=== PATIENT | female | born 1950 | race Caucasian/White ===

== ENCOUNTER → 2020-06-05 | Outpatient (CLI) | payer OTHER ==
[~2020-06-05] MED LIST: ACCU-CHEK1 EACH MC; AMLODIPINE BESYL5 MG PO; ASPIRIN EC81 MG PO; ATENOLOL100 MG PO; ATORVASTATIN CA40 MG PO; BACLOFEN10 MG PO; BACLOFEN20 MG PO; CALCIUM500 M1 PO; CYANOCOBAL1000 MCG/1 IM; DEX4 GLUCOSE4 GM PO; DIFLUCAN150 MG PO; DOXYCYCLINE MO100 MG PO; FERROUS SULFAT324 MG PO; FERROUS SULFAT325 MG PO; FUROSEMIDE20 MG PO; GEMFIBROZIL600 MG PO; GLIPIZIDE-METF1 EAC2 PO; HUMALOG 10100 UNITS/ SC; HYDROCODONE-AC1 EAC1 PO; KENALOG CREAM 015 GM TOP; LANTUS INS100 UTS/M1 SC; LASIX20 MG PO; LIORESAL TAB 1010 MG PO; LISINOPRIL40 MG PO; LISINOPRIL5 MG PO; LOPID600 MG PO; LORTAB 7.5-3251 EACH PO; MAG-OX 400 TAB400 MG PO; MAGNESIUM500 MG PO; NEURONTIN800 MG PO; NITRO-DUR1 EAC3 TOP; NITROSTAT0.4 MG SL; NORVASC 5 MG TAB5 MG PO; NYSTATIN CREAM TOP; PANTOPRAZOLE SO40 MG PO; PROTONIX 40 MG40 M1 PO; PROTONIX40 MG PO; TRAZODONE HCL100 MG PO; TYLENOL WITH C1 EACH PO; ULTRAM50 MG PO; ZESTRIL 40 MG T40 MG PO; ZESTRIL40 MG PO
[2020-06-05 09:33] LABS: HEMOGLOBIN 12.4 gm/dl (12.3-15.3); RED BLOOD COUNT 4.24 M/UL (4.00-5.10); WHITE BLOOD COUNT 8.5 K/UL (4.5-11.0)
== END ==
LOC: CT 06:46
PROVIDERS: Radiology Diagnostic Radiology
DX: R91.1 Solitary pulmonary nodule (principal); J98.4 Other disorders of lung
CPT/HCPCS: 36415; 77012; 82962; 85027; 85610

== ENCOUNTER → 2020-08-01 | Outpatient (CLI) | payer OTHER | LOC: WCC 08:00 | PROC: 0JBR0ZZ Excision of Left Foot Subcutaneous Tissue and Fascia, Open Approach (ICD-10-PCS; principal; 2020-08-01) | DX: E11.621 Type 2 diabetes mellitus with foot ulcer (principal); L97.522 Non-pressure chronic ulcer of other part of left foot with fat layer exposed; E11.52 Type 2 diabetes mellitus with diabetic peripheral angiopathy with gangrene; I96 Gangrene, not elsewhere classified; E11.40 Type 2 diabetes mellitus with diabetic neuropathy, unspecified; S80.822A Blister (nonthermal), left lower leg, initial encounter; S80.821A Blister (nonthermal), right lower leg, initial encounter; I10 Essential (primary) hypertension; D64.9 Anemia, unspecified; E11.36 Type 2 diabetes mellitus with diabetic cataract; H26.9 Unspecified cataract; E66.01 Morbid (severe) obesity due to excess calories; Z68.38 Body mass index [BMI] 38.0-38.9, adult; Z88.8 Allergy status to other drugs, medicaments and biological substances; Z79.891 Long term (current) use of opiate analgesic; Z79.899 Other long term (current) drug therapy; X58.XXXA Exposure to other specified factors, initial encounter | CPT/HCPCS: G0463 ==

== ENCOUNTER → 2020-08-08 | Outpatient (CLI) | payer OTHER | LOC: WCC 08:30 | DX: E11.621 Type 2 diabetes mellitus with foot ulcer (principal); L97.521 Non-pressure chronic ulcer of other part of left foot limited to breakdown of skin; E11.40 Type 2 diabetes mellitus with diabetic neuropathy, unspecified; S80.821A Blister (nonthermal), right lower leg, initial encounter; S80.822A Blister (nonthermal), left lower leg, initial encounter; R60.0 Localized edema; D64.9 Anemia, unspecified; I10 Essential (primary) hypertension; E66.01 Morbid (severe) obesity due to excess calories; Z68.38 Body mass index [BMI] 38.0-38.9, adult; Z88.8 Allergy status to other drugs, medicaments and biological substances; Z79.2 Long term (current) use of antibiotics; Z79.84 Long term (current) use of oral hypoglycemic drugs; Z79.899 Other long term (current) drug therapy; X58.XXXA Exposure to other specified factors, initial encounter ==

== ENCOUNTER → 2020-08-15 | Outpatient (CLI) | payer OTHER | LOC: KOH-I 08-09 10:30 | DX: E11.621 Type 2 diabetes mellitus with foot ulcer (principal); L97.529 Non-pressure chronic ulcer of other part of left foot with unspecified severity; E11.51 Type 2 diabetes mellitus with diabetic peripheral angiopathy without gangrene; I70.201 Unspecified atherosclerosis of native arteries of extremities, right leg; E11.40 Type 2 diabetes mellitus with diabetic neuropathy, unspecified; I10 Essential (primary) hypertension; R60.0 Localized edema; E66.01 Morbid (severe) obesity due to excess calories; S80.821A Blister (nonthermal), right lower leg, initial encounter; S80.822A Blister (nonthermal), left lower leg, initial encounter; D64.9 Anemia, unspecified | CPT/HCPCS: 93925 ==

== ENCOUNTER → 2020-08-15 | Outpatient (CLI) | payer OTHER | LOC: WCC 08:30 | DX: E11.621 Type 2 diabetes mellitus with foot ulcer (principal); L97.525 Non-pressure chronic ulcer of other part of left foot with muscle involvement without evidence of necrosis; E11.40 Type 2 diabetes mellitus with diabetic neuropathy, unspecified; D64.9 Anemia, unspecified; I10 Essential (primary) hypertension; R60.0 Localized edema; E66.01 Morbid (severe) obesity due to excess calories; S80.821A Blister (nonthermal), right lower leg, initial encounter; S80.822A Blister (nonthermal), left lower leg, initial encounter; Z68.38 Body mass index [BMI] 38.0-38.9, adult; Z88.8 Allergy status to other drugs, medicaments and biological substances; Z79.2 Long term (current) use of antibiotics; Z79.84 Long term (current) use of oral hypoglycemic drugs; Z79.899 Other long term (current) drug therapy; X58.XXXA Exposure to other specified factors, initial encounter | CPT/HCPCS: 93925 ==

== ENCOUNTER → 2020-08-22 | Outpatient (CLI) | payer OTHER | LOC: WCC 08:34 | DX: E11.621 Type 2 diabetes mellitus with foot ulcer (principal); L97.522 Non-pressure chronic ulcer of other part of left foot with fat layer exposed; E11.40 Type 2 diabetes mellitus with diabetic neuropathy, unspecified; I10 Essential (primary) hypertension; E66.01 Morbid (severe) obesity due to excess calories; D64.9 Anemia, unspecified; R60.0 Localized edema; S80.821D Blister (nonthermal), right lower leg, subsequent encounter; S80.822D Blister (nonthermal), left lower leg, subsequent encounter; Z68.38 Body mass index [BMI] 38.0-38.9, adult; Z88.8 Allergy status to other drugs, medicaments and biological substances; Z79.84 Long term (current) use of oral hypoglycemic drugs; Z79.2 Long term (current) use of antibiotics; Z79.899 Other long term (current) drug therapy; X58.XXXD Exposure to other specified factors, subsequent encounter ==

== ENCOUNTER → 2020-08-29 | Outpatient (CLI) | payer OTHER | LOC: WCC 09:30 | DX: E11.621 Type 2 diabetes mellitus with foot ulcer (principal); L97.525 Non-pressure chronic ulcer of other part of left foot with muscle involvement without evidence of necrosis; I10 Essential (primary) hypertension; E11.40 Type 2 diabetes mellitus with diabetic neuropathy, unspecified; R60.0 Localized edema; E66.01 Morbid (severe) obesity due to excess calories; S80.821D Blister (nonthermal), right lower leg, subsequent encounter; S80.822D Blister (nonthermal), left lower leg, subsequent encounter; D64.9 Anemia, unspecified; Z68.38 Body mass index [BMI] 38.0-38.9, adult; Z88.8 Allergy status to other drugs, medicaments and biological substances; Z79.891 Long term (current) use of opiate analgesic; Z79.2 Long term (current) use of antibiotics; Z79.84 Long term (current) use of oral hypoglycemic drugs; Z79.899 Other long term (current) drug therapy; X58.XXXD Exposure to other specified factors, subsequent encounter ==

== ENCOUNTER → 2020-09-05 | Outpatient (CLI) | payer OTHER | LOC: WCC 09:20 | DX: E11.621 Type 2 diabetes mellitus with foot ulcer (principal); L97.525 Non-pressure chronic ulcer of other part of left foot with muscle involvement without evidence of necrosis; E11.40 Type 2 diabetes mellitus with diabetic neuropathy, unspecified; I10 Essential (primary) hypertension; R60.0 Localized edema; E66.01 Morbid (severe) obesity due to excess calories; S80.821D Blister (nonthermal), right lower leg, subsequent encounter; S80.822D Blister (nonthermal), left lower leg, subsequent encounter; D64.9 Anemia, unspecified; Z68.38 Body mass index [BMI] 38.0-38.9, adult; Z88.8 Allergy status to other drugs, medicaments and biological substances; Z79.2 Long term (current) use of antibiotics; Z79.84 Long term (current) use of oral hypoglycemic drugs; Z79.891 Long term (current) use of opiate analgesic; Z79.899 Other long term (current) drug therapy; X58.XXXD Exposure to other specified factors, subsequent encounter ==

== ENCOUNTER → 2020-09-12 | Outpatient (CLI) | payer OTHER | LOC: WCC 09:22 | DX: E11.621 Type 2 diabetes mellitus with foot ulcer (principal); E11.40 Type 2 diabetes mellitus with diabetic neuropathy, unspecified; I10 Essential (primary) hypertension; E66.01 Morbid (severe) obesity due to excess calories; S80.821D Blister (nonthermal), right lower leg, subsequent encounter; S80.822D Blister (nonthermal), left lower leg, subsequent encounter; D64.9 Anemia, unspecified; Z68.38 Body mass index [BMI] 38.0-38.9, adult ==

== ENCOUNTER → 2020-09-19 | Outpatient (CLI) | payer OTHER | LOC: WCC 09:22 | DX: E11.621 Type 2 diabetes mellitus with foot ulcer (principal); L97.522 Non-pressure chronic ulcer of other part of left foot with fat layer exposed; I10 Essential (primary) hypertension; E11.40 Type 2 diabetes mellitus with diabetic neuropathy, unspecified; R60.0 Localized edema; E66.01 Morbid (severe) obesity due to excess calories; S80.821D Blister (nonthermal), right lower leg, subsequent encounter; S80.822D Blister (nonthermal), left lower leg, subsequent encounter; D64.9 Anemia, unspecified; Z68.38 Body mass index [BMI] 38.0-38.9, adult; Z88.8 Allergy status to other drugs, medicaments and biological substances; Z79.891 Long term (current) use of opiate analgesic; Z79.2 Long term (current) use of antibiotics; Z79.899 Other long term (current) drug therapy; X58.XXXD Exposure to other specified factors, subsequent encounter ==

== ENCOUNTER → 2020-09-26 | Outpatient (CLI) | payer OTHER | LOC: WCC 09:30 | DX: E11.621 Type 2 diabetes mellitus with foot ulcer (principal); L97.522 Non-pressure chronic ulcer of other part of left foot with fat layer exposed; E11.40 Type 2 diabetes mellitus with diabetic neuropathy, unspecified; I10 Essential (primary) hypertension; R60.0 Localized edema; E66.01 Morbid (severe) obesity due to excess calories; S80.821A Blister (nonthermal), right lower leg, initial encounter; S80.822A Blister (nonthermal), left lower leg, initial encounter; Z68.38 Body mass index [BMI] 38.0-38.9, adult; D64.9 Anemia, unspecified; Z88.8 Allergy status to other drugs, medicaments and biological substances; Z79.891 Long term (current) use of opiate analgesic; Z79.899 Other long term (current) drug therapy; X58.XXXA Exposure to other specified factors, initial encounter ==

== ENCOUNTER → 2020-10-03 | Outpatient (CLI) | payer OTHER | LOC: WCC 09:13 | DX: E11.621 Type 2 diabetes mellitus with foot ulcer (principal); L97.522 Non-pressure chronic ulcer of other part of left foot with fat layer exposed; I10 Essential (primary) hypertension; E11.40 Type 2 diabetes mellitus with diabetic neuropathy, unspecified; R60.0 Localized edema; E66.01 Morbid (severe) obesity due to excess calories; S80.821A Blister (nonthermal), right lower leg, initial encounter; S80.822A Blister (nonthermal), left lower leg, initial encounter; D64.9 Anemia, unspecified; Z68.38 Body mass index [BMI] 38.0-38.9, adult; Z88.8 Allergy status to other drugs, medicaments and biological substances; Z79.891 Long term (current) use of opiate analgesic; Z79.84 Long term (current) use of oral hypoglycemic drugs; Z79.899 Other long term (current) drug therapy; X58.XXXA Exposure to other specified factors, initial encounter ==

== ENCOUNTER → 2020-10-10 | Outpatient (CLI) | payer OTHER | LOC: WCC 08:00 | DX: E11.621 Type 2 diabetes mellitus with foot ulcer (principal); L97.522 Non-pressure chronic ulcer of other part of left foot with fat layer exposed; E11.40 Type 2 diabetes mellitus with diabetic neuropathy, unspecified; I10 Essential (primary) hypertension; R60.0 Localized edema; S80.821A Blister (nonthermal), right lower leg, initial encounter; S80.822A Blister (nonthermal), left lower leg, initial encounter; E66.01 Morbid (severe) obesity due to excess calories; Z68.38 Body mass index [BMI] 38.0-38.9, adult; D64.9 Anemia, unspecified; Z88.8 Allergy status to other drugs, medicaments and biological substances; Z79.891 Long term (current) use of opiate analgesic; Z79.899 Other long term (current) drug therapy; X58.XXXA Exposure to other specified factors, initial encounter ==

== ENCOUNTER → 2020-10-17 | Outpatient (CLI) | payer OTHER | LOC: WCC 08:00 | DX: E11.621 Type 2 diabetes mellitus with foot ulcer (principal); L98.492 Non-pressure chronic ulcer of skin of other sites with fat layer exposed; I10 Essential (primary) hypertension; E11.40 Type 2 diabetes mellitus with diabetic neuropathy, unspecified; D64.9 Anemia, unspecified; R60.0 Localized edema; S80.821D Blister (nonthermal), right lower leg, subsequent encounter; S80.822D Blister (nonthermal), left lower leg, subsequent encounter; E66.01 Morbid (severe) obesity due to excess calories; Z79.84 Long term (current) use of oral hypoglycemic drugs; Z79.899 Other long term (current) drug therapy; Z79.891 Long term (current) use of opiate analgesic ==

== ENCOUNTER 2020-10-25 20:58 | Emergency (ER) | payer OTHER ==
[2020-10-25 21:54] LABS: HEMOGLOBIN 10.3 gm/dl (12.3-15.3); RED BLOOD COUNT 3.53 M/UL (4.00-5.10); WHITE BLOOD COUNT 9.3 K/UL (4.5-11.0)
[2020-10-25 22:10] LABS: BUN/CREATININE RATIO 30 (0-10)
[2020-10-26] MEDS ORDERED: DOXYCYCLINE MO100 MG PO (03:04)
== END 2020-10-26 03:14 | disposition home or self-care (01) ==
LOC: ER1 20:58
PROVIDERS: Physician Assistant
DX: L03.116 Cellulitis of left lower limb (principal); R53.1 Weakness; E11.9 Type 2 diabetes mellitus without complications; Z90.49 Acquired absence of other specified parts of digestive tract; Z90.710 Acquired absence of both cervix and uterus; Z88.8 Allergy status to other drugs, medicaments and biological substances
CPT/HCPCS: 71045; 80053; 81001; 82550; 82553; 82962; 83874; 83880; 84439; 84443; 84484; 85025; 85610; 85730; 87077; 87086; 87186; 93005; 99285

== ENCOUNTER → 2020-10-31 | Outpatient (CLI) | payer OTHER | LOC: WCC 08:00 | DX: E11.621 Type 2 diabetes mellitus with foot ulcer (principal); L97.522 Non-pressure chronic ulcer of other part of left foot with fat layer exposed; E11.40 Type 2 diabetes mellitus with diabetic neuropathy, unspecified; I10 Essential (primary) hypertension; R60.0 Localized edema; D64.9 Anemia, unspecified; S80.822A Blister (nonthermal), left lower leg, initial encounter; S80.821A Blister (nonthermal), right lower leg, initial encounter; E66.01 Morbid (severe) obesity due to excess calories; Z68.38 Body mass index [BMI] 38.0-38.9, adult; Z88.8 Allergy status to other drugs, medicaments and biological substances; Z79.891 Long term (current) use of opiate analgesic; Z79.899 Other long term (current) drug therapy; X58.XXXA Exposure to other specified factors, initial encounter ==

== ENCOUNTER → 2020-11-21 | Outpatient (CLI) | payer OTHER | LOC: WCC 08:13 | DX: E11.621 Type 2 diabetes mellitus with foot ulcer (principal); L97.522 Non-pressure chronic ulcer of other part of left foot with fat layer exposed; D64.9 Anemia, unspecified; I10 Essential (primary) hypertension; E11.40 Type 2 diabetes mellitus with diabetic neuropathy, unspecified; E66.01 Morbid (severe) obesity due to excess calories; Z68.38 Body mass index [BMI] 38.0-38.9, adult; R60.0 Localized edema; Z88.8 Allergy status to other drugs, medicaments and biological substances ==

== ENCOUNTER → 2020-12-05 | Outpatient (CLI) | payer OTHER | LOC: WCC 08:00 | DX: E11.621 Type 2 diabetes mellitus with foot ulcer (principal); L97.525 Non-pressure chronic ulcer of other part of left foot with muscle involvement without evidence of necrosis; I10 Essential (primary) hypertension; E11.40 Type 2 diabetes mellitus with diabetic neuropathy, unspecified; E66.01 Morbid (severe) obesity due to excess calories; S80.821A Blister (nonthermal), right lower leg, initial encounter; S80.822A Blister (nonthermal), left lower leg, initial encounter; R60.0 Localized edema; D64.9 Anemia, unspecified; Z68.38 Body mass index [BMI] 38.0-38.9, adult; Z88.8 Allergy status to other drugs, medicaments and biological substances; Z79.891 Long term (current) use of opiate analgesic; Z79.899 Other long term (current) drug therapy; X58.XXXA Exposure to other specified factors, initial encounter ==

== ENCOUNTER → 2020-12-19 | Outpatient (CLI) | payer OTHER | LOC: WCC 08:00 | DX: E11.621 Type 2 diabetes mellitus with foot ulcer (principal); L97.522 Non-pressure chronic ulcer of other part of left foot with fat layer exposed; E11.40 Type 2 diabetes mellitus with diabetic neuropathy, unspecified; I10 Essential (primary) hypertension; S80.821A Blister (nonthermal), right lower leg, initial encounter; S80.822A Blister (nonthermal), left lower leg, initial encounter; D64.9 Anemia, unspecified; E66.01 Morbid (severe) obesity due to excess calories; Z68.38 Body mass index [BMI] 38.0-38.9, adult; Z79.899 Other long term (current) drug therapy ==

== ENCOUNTER → 2021-01-02 | Outpatient (CLI) | payer OTHER | END | disposition home or self-care (01) | LOC: WCC 08:14 | PROC: 0JBR0ZZ Excision of Left Foot Subcutaneous Tissue and Fascia, Open Approach (ICD-10-PCS; principal; 2021-01-02) | DX: E11.621 Type 2 diabetes mellitus with foot ulcer (principal); L97.525 Non-pressure chronic ulcer of other part of left foot with muscle involvement without evidence of necrosis; E11.40 Type 2 diabetes mellitus with diabetic neuropathy, unspecified; E11.36 Type 2 diabetes mellitus with diabetic cataract; H26.9 Unspecified cataract; S80.822D Blister (nonthermal), left lower leg, subsequent encounter; S80.821D Blister (nonthermal), right lower leg, subsequent encounter; D64.9 Anemia, unspecified; I10 Essential (primary) hypertension; E66.01 Morbid (severe) obesity due to excess calories; Z68.38 Body mass index [BMI] 38.0-38.9, adult; Z79.891 Long term (current) use of opiate analgesic; Z79.899 Other long term (current) drug therapy; Z88.8 Allergy status to other drugs, medicaments and biological substances; X58.XXXD Exposure to other specified factors, subsequent encounter ==

== ENCOUNTER → 2021-01-16 | Outpatient (CLI) | payer OTHER | LOC: WCC 08:00 | DX: E11.621 Type 2 diabetes mellitus with foot ulcer (principal); L97.525 Non-pressure chronic ulcer of other part of left foot with muscle involvement without evidence of necrosis; E11.40 Type 2 diabetes mellitus with diabetic neuropathy, unspecified; I10 Essential (primary) hypertension; R60.0 Localized edema; E66.01 Morbid (severe) obesity due to excess calories; S80.821A Blister (nonthermal), right lower leg, initial encounter; S80.822A Blister (nonthermal), left lower leg, initial encounter; D64.9 Anemia, unspecified; Z68.38 Body mass index [BMI] 38.0-38.9, adult; Z88.8 Allergy status to other drugs, medicaments and biological substances; Z79.84 Long term (current) use of oral hypoglycemic drugs; Z79.899 Other long term (current) drug therapy; X58.XXXA Exposure to other specified factors, initial encounter ==

== ENCOUNTER → 2021-01-30 | Outpatient (CLI) | payer OTHER | LOC: WCC 07:51 | DX: E11.621 Type 2 diabetes mellitus with foot ulcer (principal); L97.522 Non-pressure chronic ulcer of other part of left foot with fat layer exposed; I10 Essential (primary) hypertension; E11.40 Type 2 diabetes mellitus with diabetic neuropathy, unspecified; R60.0 Localized edema; E66.01 Morbid (severe) obesity due to excess calories; S80.821A Blister (nonthermal), right lower leg, initial encounter; S80.822A Blister (nonthermal), left lower leg, initial encounter; D64.9 Anemia, unspecified; Z68.38 Body mass index [BMI] 38.0-38.9, adult; Z88.8 Allergy status to other drugs, medicaments and biological substances; Z79.899 Other long term (current) drug therapy; X58.XXXA Exposure to other specified factors, initial encounter | CPT/HCPCS: 87070; 87077; 87186; 87205 ==

== ENCOUNTER → 2021-02-13 | Outpatient (CLI) | payer OTHER | LOC: WCC 07:07 | DX: E11.621 Type 2 diabetes mellitus with foot ulcer (principal); L97.523 Non-pressure chronic ulcer of other part of left foot with necrosis of muscle; E11.40 Type 2 diabetes mellitus with diabetic neuropathy, unspecified; I10 Essential (primary) hypertension; D64.9 Anemia, unspecified; E66.01 Morbid (severe) obesity due to excess calories; Z68.38 Body mass index [BMI] 38.0-38.9, adult; S80.821D Blister (nonthermal), right lower leg, subsequent encounter; S80.822D Blister (nonthermal), left lower leg, subsequent encounter ==

== ENCOUNTER → 2021-02-13 | Outpatient (CLI) | payer OTHER | LOC: RAD 09:36 | DX: E11.621 Type 2 diabetes mellitus with foot ulcer (principal); I10 Essential (primary) hypertension; E11.40 Type 2 diabetes mellitus with diabetic neuropathy, unspecified; R60.0 Localized edema; E66.01 Morbid (severe) obesity due to excess calories; S80.821D Blister (nonthermal), right lower leg, subsequent encounter; S80.822D Blister (nonthermal), left lower leg, subsequent encounter; D64.9 Anemia, unspecified; M19.072 Primary osteoarthritis, left ankle and foot | CPT/HCPCS: 73630 ==

== ENCOUNTER → 2021-02-27 | Outpatient (CLI) | payer OTHER | END | disposition home or self-care (01) | LOC: WCC 07:21 | DX: E11.621 Type 2 diabetes mellitus with foot ulcer (principal); L97.525 Non-pressure chronic ulcer of other part of left foot with muscle involvement without evidence of necrosis; I10 Essential (primary) hypertension; E11.40 Type 2 diabetes mellitus with diabetic neuropathy, unspecified; R60.0 Localized edema; E66.01 Morbid (severe) obesity due to excess calories; S80.821D Blister (nonthermal), right lower leg, subsequent encounter; S80.822D Blister (nonthermal), left lower leg, subsequent encounter; D64.9 Anemia, unspecified; Z68.38 Body mass index [BMI] 38.0-38.9, adult ==

== ENCOUNTER → 2021-03-13 | Outpatient (CLI) | payer OTHER | END | disposition home or self-care (01) | LOC: WCC 07:32 | DX: E11.621 Type 2 diabetes mellitus with foot ulcer (principal); L97.525 Non-pressure chronic ulcer of other part of left foot with muscle involvement without evidence of necrosis; L97.512 Non-pressure chronic ulcer of other part of right foot with fat layer exposed; I10 Essential (primary) hypertension; E11.40 Type 2 diabetes mellitus with diabetic neuropathy, unspecified; R60.0 Localized edema; E66.01 Morbid (severe) obesity due to excess calories; S80.821A Blister (nonthermal), right lower leg, initial encounter; S80.822A Blister (nonthermal), left lower leg, initial encounter; D64.9 Anemia, unspecified; Z68.38 Body mass index [BMI] 38.0-38.9, adult; Z79.899 Other long term (current) drug therapy ==

== ENCOUNTER → 2021-03-27 | Outpatient (CLI) | payer OTHER | END | disposition home or self-care (01) | LOC: WCC 07:14 | DX: E11.621 Type 2 diabetes mellitus with foot ulcer (principal); L97.525 Non-pressure chronic ulcer of other part of left foot with muscle involvement without evidence of necrosis; L97.515 Non-pressure chronic ulcer of other part of right foot with muscle involvement without evidence of necrosis; S80.821A Blister (nonthermal), right lower leg, initial encounter; S80.822A Blister (nonthermal), left lower leg, initial encounter; X58.XXXA Exposure to other specified factors, initial encounter; E11.40 Type 2 diabetes mellitus with diabetic neuropathy, unspecified; I10 Essential (primary) hypertension; R60.0 Localized edema; E66.01 Morbid (severe) obesity due to excess calories; D64.9 Anemia, unspecified; Z68.38 Body mass index [BMI] 38.0-38.9, adult; Z79.899 Other long term (current) drug therapy | CPT/HCPCS: 87070; 87205 ==

== ENCOUNTER → 2021-04-03 | Outpatient (CLI) | payer OTHER | LOC: WCC 07:27 | DX: E11.621 Type 2 diabetes mellitus with foot ulcer (principal); L97.525 Non-pressure chronic ulcer of other part of left foot with muscle involvement without evidence of necrosis; L97.515 Non-pressure chronic ulcer of other part of right foot with muscle involvement without evidence of necrosis; I10 Essential (primary) hypertension; E11.40 Type 2 diabetes mellitus with diabetic neuropathy, unspecified; R60.0 Localized edema; E66.01 Morbid (severe) obesity due to excess calories; S80.821A Blister (nonthermal), right lower leg, initial encounter; S80.822A Blister (nonthermal), left lower leg, initial encounter; D64.9 Anemia, unspecified; Z88.8 Allergy status to other drugs, medicaments and biological substances; Z79.899 Other long term (current) drug therapy; Z68.38 Body mass index [BMI] 38.0-38.9, adult; X58.XXXA Exposure to other specified factors, initial encounter ==

== ENCOUNTER → 2021-04-10 | Outpatient (CLI) | payer OTHER | END | disposition home or self-care (01) | LOC: WCC 07:27 | PROC: 0JBR0ZZ Excision of Left Foot Subcutaneous Tissue and Fascia, Open Approach (ICD-10-PCS; principal; 2021-04-10) | PROC: 0JBQ0ZZ Excision of Right Foot Subcutaneous Tissue and Fascia, Open Approach (ICD-10-PCS; 2021-04-10) | DX: E11.621 Type 2 diabetes mellitus with foot ulcer (principal); L97.522 Non-pressure chronic ulcer of other part of left foot with fat layer exposed; L97.512 Non-pressure chronic ulcer of other part of right foot with fat layer exposed; S80.822D Blister (nonthermal), left lower leg, subsequent encounter; S80.821D Blister (nonthermal), right lower leg, subsequent encounter; I10 Essential (primary) hypertension; E11.40 Type 2 diabetes mellitus with diabetic neuropathy, unspecified; D64.9 Anemia, unspecified; E11.36 Type 2 diabetes mellitus with diabetic cataract; H26.9 Unspecified cataract; E66.01 Morbid (severe) obesity due to excess calories; Z68.38 Body mass index [BMI] 38.0-38.9, adult; Z79.84 Long term (current) use of oral hypoglycemic drugs; Z79.891 Long term (current) use of opiate analgesic; Z79.899 Other long term (current) drug therapy; Z88.8 Allergy status to other drugs, medicaments and biological substances; X58.XXXD Exposure to other specified factors, subsequent encounter ==

== ENCOUNTER → 2021-04-17 | Outpatient (CLI) | payer OTHER | END | disposition home or self-care (01) | LOC: WCC 07:03 | PROC: 0JBQ0ZZ Excision of Right Foot Subcutaneous Tissue and Fascia, Open Approach (ICD-10-PCS; principal; 2021-04-17) | PROC: 0KBW0ZZ Excision of Left Foot Muscle, Open Approach (ICD-10-PCS; principal; 2021-04-17) | DX: E11.621 Type 2 diabetes mellitus with foot ulcer (principal); L97.525 Non-pressure chronic ulcer of other part of left foot with muscle involvement without evidence of necrosis; L97.512 Non-pressure chronic ulcer of other part of right foot with fat layer exposed; I10 Essential (primary) hypertension; E66.01 Morbid (severe) obesity due to excess calories; E11.40 Type 2 diabetes mellitus with diabetic neuropathy, unspecified; E11.36 Type 2 diabetes mellitus with diabetic cataract; H26.9 Unspecified cataract; S80.822A Blister (nonthermal), left lower leg, initial encounter; S80.821A Blister (nonthermal), right lower leg, initial encounter; D64.9 Anemia, unspecified; X58.XXXA Exposure to other specified factors, initial encounter; Z68.38 Body mass index [BMI] 38.0-38.9, adult; Z79.84 Long term (current) use of oral hypoglycemic drugs; Z79.899 Other long term (current) drug therapy; Z88.8 Allergy status to other drugs, medicaments and biological substances ==

== ENCOUNTER → 2021-05-01 | Outpatient (CLI) | payer OTHER | LOC: WCC 07:37 | DX: E11.621 Type 2 diabetes mellitus with foot ulcer (principal); L97.522 Non-pressure chronic ulcer of other part of left foot with fat layer exposed; L97.515 Non-pressure chronic ulcer of other part of right foot with muscle involvement without evidence of necrosis; I10 Essential (primary) hypertension; E11.40 Type 2 diabetes mellitus with diabetic neuropathy, unspecified; R60.0 Localized edema; E66.01 Morbid (severe) obesity due to excess calories; D64.9 Anemia, unspecified; Z68.38 Body mass index [BMI] 38.0-38.9, adult; Z88.8 Allergy status to other drugs, medicaments and biological substances; Z79.899 Other long term (current) drug therapy ==

== ENCOUNTER → 2021-05-01 | Outpatient (CLI) | payer OTHER | LOC: RAD 09:32 | DX: L97.516 Non-pressure chronic ulcer of other part of right foot with bone involvement without evidence of necrosis (principal); M85.871 Other specified disorders of bone density and structure, right ankle and foot | CPT/HCPCS: 73630 ==

== ENCOUNTER → 2021-05-22 | Outpatient (CLI) | payer OTHER | LOC: WCC 07:11 | DX: E11.621 Type 2 diabetes mellitus with foot ulcer (principal); L97.525 Non-pressure chronic ulcer of other part of left foot with muscle involvement without evidence of necrosis; L97.515 Non-pressure chronic ulcer of other part of right foot with muscle involvement without evidence of necrosis; D64.9 Anemia, unspecified; I10 Essential (primary) hypertension; E11.40 Type 2 diabetes mellitus with diabetic neuropathy, unspecified; E66.01 Morbid (severe) obesity due to excess calories; R60.0 Localized edema; Z68.38 Body mass index [BMI] 38.0-38.9, adult; Z88.8 Allergy status to other drugs, medicaments and biological substances ==

== ENCOUNTER → 2021-05-29 | Outpatient (CLI) | payer OTHER | LOC: WCC 07:18 | DX: E11.621 Type 2 diabetes mellitus with foot ulcer (principal); L97.525 Non-pressure chronic ulcer of other part of left foot with muscle involvement without evidence of necrosis; L97.515 Non-pressure chronic ulcer of other part of right foot with muscle involvement without evidence of necrosis; E11.40 Type 2 diabetes mellitus with diabetic neuropathy, unspecified; R60.0 Localized edema; E66.01 Morbid (severe) obesity due to excess calories; D64.9 Anemia, unspecified; Z68.38 Body mass index [BMI] 38.0-38.9, adult; Z88.8 Allergy status to other drugs, medicaments and biological substances; Z79.84 Long term (current) use of oral hypoglycemic drugs; Z79.899 Other long term (current) drug therapy ==

== ENCOUNTER → 2021-06-05 | Outpatient (CLI) | payer OTHER | LOC: WCC 06:59 | DX: E11.621 Type 2 diabetes mellitus with foot ulcer (principal); L97.525 Non-pressure chronic ulcer of other part of left foot with muscle involvement without evidence of necrosis; L97.516 Non-pressure chronic ulcer of other part of right foot with bone involvement without evidence of necrosis; I10 Essential (primary) hypertension; E11.40 Type 2 diabetes mellitus with diabetic neuropathy, unspecified; R60.0 Localized edema; E66.01 Morbid (severe) obesity due to excess calories; D64.9 Anemia, unspecified; E11.36 Type 2 diabetes mellitus with diabetic cataract; H26.9 Unspecified cataract; Z88.8 Allergy status to other drugs, medicaments and biological substances ==

== ENCOUNTER → 2021-06-12 | Outpatient (CLI) | payer OTHER | LOC: WCC 07:34 | DX: E11.621 Type 2 diabetes mellitus with foot ulcer (principal); D64.9 Anemia, unspecified; I10 Essential (primary) hypertension; E11.40 Type 2 diabetes mellitus with diabetic neuropathy, unspecified; E66.01 Morbid (severe) obesity due to excess calories; R60.0 Localized edema; L97.516 Non-pressure chronic ulcer of other part of right foot with bone involvement without evidence of necrosis; L97.525 Non-pressure chronic ulcer of other part of left foot with muscle involvement without evidence of necrosis; L97.512 Non-pressure chronic ulcer of other part of right foot with fat layer exposed; Z68.38 Body mass index [BMI] 38.0-38.9, adult; Z88.8 Allergy status to other drugs, medicaments and biological substances ==

== ENCOUNTER → 2021-06-19 | Outpatient (CLI) | payer OTHER | LOC: WCC 07:23 | DX: E11.621 Type 2 diabetes mellitus with foot ulcer (principal); L97.522 Non-pressure chronic ulcer of other part of left foot with fat layer exposed; L97.512 Non-pressure chronic ulcer of other part of right foot with fat layer exposed; I10 Essential (primary) hypertension; E11.40 Type 2 diabetes mellitus with diabetic neuropathy, unspecified; R60.0 Localized edema; E66.01 Morbid (severe) obesity due to excess calories; D64.9 Anemia, unspecified; E11.36 Type 2 diabetes mellitus with diabetic cataract; H26.9 Unspecified cataract; Z88.8 Allergy status to other drugs, medicaments and biological substances ==

== ENCOUNTER → 2021-06-26 | Outpatient (CLI) | payer OTHER | LOC: WCC 07:27 | DX: E11.621 Type 2 diabetes mellitus with foot ulcer (principal); L97.525 Non-pressure chronic ulcer of other part of left foot with muscle involvement without evidence of necrosis; L97.515 Non-pressure chronic ulcer of other part of right foot with muscle involvement without evidence of necrosis; I10 Essential (primary) hypertension; E11.40 Type 2 diabetes mellitus with diabetic neuropathy, unspecified; R60.0 Localized edema; E66.01 Morbid (severe) obesity due to excess calories; D64.9 Anemia, unspecified; Z68.38 Body mass index [BMI] 38.0-38.9, adult; Z88.8 Allergy status to other drugs, medicaments and biological substances; Z79.899 Other long term (current) drug therapy ==

== ENCOUNTER → 2021-07-03 | Outpatient (CLI) | payer OTHER | END | disposition home or self-care (01) | LOC: WCC 07:42 | DX: E11.621 Type 2 diabetes mellitus with foot ulcer (principal); L97.525 Non-pressure chronic ulcer of other part of left foot with muscle involvement without evidence of necrosis; L97.512 Non-pressure chronic ulcer of other part of right foot with fat layer exposed; E11.40 Type 2 diabetes mellitus with diabetic neuropathy, unspecified; I10 Essential (primary) hypertension; R60.0 Localized edema; D64.9 Anemia, unspecified; Z79.891 Long term (current) use of opiate analgesic; Z79.899 Other long term (current) drug therapy ==

== ENCOUNTER → 2021-07-10 | Outpatient (CLI) | payer OTHER | LOC: WCC 07:15 | DX: E11.621 Type 2 diabetes mellitus with foot ulcer (principal); L97.525 Non-pressure chronic ulcer of other part of left foot with muscle involvement without evidence of necrosis; I10 Essential (primary) hypertension; E11.40 Type 2 diabetes mellitus with diabetic neuropathy, unspecified; R60.0 Localized edema; E66.01 Morbid (severe) obesity due to excess calories; D64.9 Anemia, unspecified; L97.516 Non-pressure chronic ulcer of other part of right foot with bone involvement without evidence of necrosis; E11.36 Type 2 diabetes mellitus with diabetic cataract; H26.9 Unspecified cataract; Z88.8 Allergy status to other drugs, medicaments and biological substances ==

== ENCOUNTER → 2021-07-17 | Outpatient (CLI) | payer OTHER | LOC: WCC 07:31 | DX: E11.621 Type 2 diabetes mellitus with foot ulcer (principal); L97.522 Non-pressure chronic ulcer of other part of left foot with fat layer exposed; L97.511 Non-pressure chronic ulcer of other part of right foot limited to breakdown of skin; I10 Essential (primary) hypertension; E11.40 Type 2 diabetes mellitus with diabetic neuropathy, unspecified; R60.0 Localized edema; E66.01 Morbid (severe) obesity due to excess calories; D64.9 Anemia, unspecified; Z68.38 Body mass index [BMI] 38.0-38.9, adult; Z88.8 Allergy status to other drugs, medicaments and biological substances; Z79.84 Long term (current) use of oral hypoglycemic drugs; Z79.899 Other long term (current) drug therapy | CPT/HCPCS: 97597 ==

== ENCOUNTER → 2021-07-24 | Outpatient (CLI) | payer OTHER | LOC: WCC 07:23 | DX: E11.621 Type 2 diabetes mellitus with foot ulcer (principal); L97.522 Non-pressure chronic ulcer of other part of left foot with fat layer exposed; I10 Essential (primary) hypertension; E11.610 Type 2 diabetes mellitus with diabetic neuropathic arthropathy; E66.01 Morbid (severe) obesity due to excess calories; L97.516 Non-pressure chronic ulcer of other part of right foot with bone involvement without evidence of necrosis; D64.9 Anemia, unspecified; R60.0 Localized edema; Z88.8 Allergy status to other drugs, medicaments and biological substances ==

== ENCOUNTER → 2021-08-07 | Outpatient (CLI) | payer OTHER | LOC: WCC 07:43 | DX: E11.621 Type 2 diabetes mellitus with foot ulcer (principal); L97.525 Non-pressure chronic ulcer of other part of left foot with muscle involvement without evidence of necrosis; I10 Essential (primary) hypertension; E11.40 Type 2 diabetes mellitus with diabetic neuropathy, unspecified; R60.0 Localized edema; E66.01 Morbid (severe) obesity due to excess calories; D64.9 Anemia, unspecified; Z68.38 Body mass index [BMI] 38.0-38.9, adult; Z88.8 Allergy status to other drugs, medicaments and biological substances; Z79.899 Other long term (current) drug therapy ==

== ENCOUNTER → 2021-08-14 | Outpatient (CLI) | payer OTHER | LOC: WCC 07:18 | DX: E11.621 Type 2 diabetes mellitus with foot ulcer (principal); L97.525 Non-pressure chronic ulcer of other part of left foot with muscle involvement without evidence of necrosis; I10 Essential (primary) hypertension; E11.40 Type 2 diabetes mellitus with diabetic neuropathy, unspecified; R60.0 Localized edema; E66.01 Morbid (severe) obesity due to excess calories; D64.9 Anemia, unspecified; E11.36 Type 2 diabetes mellitus with diabetic cataract; H26.9 Unspecified cataract; Z88.8 Allergy status to other drugs, medicaments and biological substances ==

== ENCOUNTER → 2021-08-21 | Outpatient (CLI) | payer OTHER | END | disposition home or self-care (01) | LOC: WCC 07:21 | DX: E11.621 Type 2 diabetes mellitus with foot ulcer (principal); L97.525 Non-pressure chronic ulcer of other part of left foot with muscle involvement without evidence of necrosis; R60.0 Localized edema; I10 Essential (primary) hypertension; E11.40 Type 2 diabetes mellitus with diabetic neuropathy, unspecified; D64.9 Anemia, unspecified; E66.01 Morbid (severe) obesity due to excess calories; Z68.38 Body mass index [BMI] 38.0-38.9, adult; Z79.899 Other long term (current) drug therapy | CPT/HCPCS: 87070; 87205 ==

== ENCOUNTER → 2021-08-28 | Outpatient (CLI) | payer OTHER | LOC: WCC 06:58 | DX: E11.621 Type 2 diabetes mellitus with foot ulcer (principal); L97.823 Non-pressure chronic ulcer of other part of left lower leg with necrosis of muscle; E11.40 Type 2 diabetes mellitus with diabetic neuropathy, unspecified; R60.0 Localized edema; E66.01 Morbid (severe) obesity due to excess calories; D64.9 Anemia, unspecified | CPT/HCPCS: G0463 ==

== ENCOUNTER → 2021-09-04 | Outpatient (CLI) | payer OTHER | LOC: WCC 07:26 | DX: E11.621 Type 2 diabetes mellitus with foot ulcer (principal); L97.525 Non-pressure chronic ulcer of other part of left foot with muscle involvement without evidence of necrosis; I10 Essential (primary) hypertension; E11.40 Type 2 diabetes mellitus with diabetic neuropathy, unspecified; R60.0 Localized edema; E66.01 Morbid (severe) obesity due to excess calories; D64.9 Anemia, unspecified; Z68.38 Body mass index [BMI] 38.0-38.9, adult; Z88.8 Allergy status to other drugs, medicaments and biological substances; Z79.899 Other long term (current) drug therapy ==

== ENCOUNTER → 2021-09-09 | Outpatient (CLI) | payer OTHER | LOC: WCC 09:19 | DX: E11.621 Type 2 diabetes mellitus with foot ulcer (principal); L97.525 Non-pressure chronic ulcer of other part of left foot with muscle involvement without evidence of necrosis; I10 Essential (primary) hypertension; E11.40 Type 2 diabetes mellitus with diabetic neuropathy, unspecified; R60.0 Localized edema; E66.01 Morbid (severe) obesity due to excess calories; D64.9 Anemia, unspecified; E11.36 Type 2 diabetes mellitus with diabetic cataract; H26.9 Unspecified cataract; Z88.8 Allergy status to other drugs, medicaments and biological substances ==

== ENCOUNTER → 2021-09-11 | Outpatient (CLI) | payer OTHER ==
[~2021-09-11] MED LIST changes: -FERROUS SULFAT325 MG PO; +HYDROCODON-ACE1 EAC6 PO; -HYDROCODONE-AC1 EAC1 PO; +IBUPROFEN IB200 MG PO; +RESTASIS1 EACH OU; +ZYRTEC10 MG PO
== END ==
LOC: WCC 06:39
DX: E11.621 Type 2 diabetes mellitus with foot ulcer (principal); L97.525 Non-pressure chronic ulcer of other part of left foot with muscle involvement without evidence of necrosis; I10 Essential (primary) hypertension; E11.40 Type 2 diabetes mellitus with diabetic neuropathy, unspecified; R60.0 Localized edema; D64.9 Anemia, unspecified; E66.01 Morbid (severe) obesity due to excess calories

== ENCOUNTER → 2021-09-13 | Outpatient (CLI) | payer OTHER | LOC: WCC 06:49 | DX: E11.621 Type 2 diabetes mellitus with foot ulcer (principal); L97.522 Non-pressure chronic ulcer of other part of left foot with fat layer exposed | CPT/HCPCS: G0463 ==

== ENCOUNTER 2021-09-16 18:23 | Inpatient (IN) | payer OTHER ==
[~2021-09-16] VITALS: Ht 170.2 cm; Wt 122.5 kg
[~2021-09-16 18:23] MED LIST changes: -IBUPROFEN IB200 MG PO; -RESTASIS1 EACH OU; -ZYRTEC10 MG PO
[2021-09-16 18:58] LABS: RED BLOOD COUNT 3.76 M/UL (4.00-5.10); WHITE BLOOD COUNT 13.1 K/UL (4.5-11.0)
[2021-09-17 03:24] LABS: HEMOGLOBIN 9.6 gm/dl (12.3-15.3)
[2021-09-17 03:27] LABS: RED BLOOD COUNT 3.28 M/UL (4.00-5.10); WHITE BLOOD COUNT 8.8 K/UL (4.5-11.0)
[2021-09-17 09:05] LABS: KPC-CARBAPENEM-RESISTANCE GENE Not Detected (Negative); STAPHYLOCOCCUS Not Detected (Negative); STAPHYLOCOCCUS AUREUS Not Detected (Negative); vanA/B (VANCOMYCIN RESIST GENE Not Detected (Negative)
[2021-09-17 09:06] LABS: CANDIDA ALBICANS Not Detected (Negative); CANDIDA KRUSEI Not Detected (Negative); CANDIDA TROPICALIS Not Detected (Negative); HAEMOPHILUS INFLUENZAE Not Detected (Negative); KLEBSIELLA OXYTOCA Not Detected (Negative); KLEBSIELLA PNEUMONIAE Not Detected (Negative); PROTEUS Not Detected (Negative); PSEUDOMONAS AERUGINOSA Not Detected (Negative); SERRATIA MARCESANS Not Detected (Negative); STREP AGALACTIAE (GROUP B) Not Detected (Negative); STREP PYOGENES (GROUP A) Not Detected (Negative); STREPTOCOCCUS Not Detected (Negative)
[2021-09-17] MEDS ORDERED: KENALOG CREAM 015 GM TOP (09:44)
[2021-09-17] MEDS ORDERED: RESTASIS1 EACH OU (09:44)
[2021-09-17] MEDS ORDERED: ZYRTEC10 MG PO (09:45)
[2021-09-17] MEDS ORDERED: IBUPROFEN IB200 MG PO (09:45)
[2021-09-17 10:16] LABS: ESCHERICHIA COLI DETECTED (Negative)
[2021-09-18 01:51] LABS: HEMOGLOBIN 9.1 gm/dl (12.3-15.3); RED BLOOD COUNT 3.11 M/UL (4.00-5.10); WHITE BLOOD COUNT 7.5 K/UL (4.5-11.0)
--- NOTE | 2021-09-18 06:52 | NUR ---
PT IS TURN Q2 HRS. PT ALLOWED US TO TURN THE FIRST 4 HRS OF SHIFT, BUT PT REFUSED AFTERWARDS WHEN SHE WAS GOING TO SLEEP. PT ALLOWED US TO TURN AGAIN AT 0600.
[2021-09-19 03:14] LABS: HEMOGLOBIN 9.3 gm/dl (12.3-15.3); RED BLOOD COUNT 3.19 M/UL (4.00-5.10); WHITE BLOOD COUNT 7.9 K/UL (4.5-11.0)
[2021-09-20 04:48] LABS: HEMOGLOBIN 9.3 gm/dl (12.3-15.3); RED BLOOD COUNT 3.24 M/UL (4.00-5.10)
[2021-09-20 05:01] LABS: WHITE BLOOD COUNT 5.9 K/UL (4.5-11.0)
[2021-09-20] MEDS ORDERED: LEVOFLOXACIN500 MG PO (17:02)
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
[2021-09-21 03:20] LABS: HEMOGLOBIN 10.8 gm/dl (12.3-15.3); WHITE BLOOD COUNT 6.4 K/UL (4.5-11.0)
[2021-09-21 03:42] LABS: RED BLOOD COUNT 3.81 M/UL (4.00-5.10)
[2021-09-21 04:07] LABS: BUN/CREATININE RATIO 24 (0-10)
--- NOTE | 2021-09-21 10:55 | NUR ---
PATIENT PLACED ON A WAFFLE MATTRESS AT THIS TIME. DUE TO PRESSURE INJURIES.
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
--- NOTE | 2021-09-21 14:37 | NUR ---
APPROVED REMOVAL OF TELE MONITOR WHUILE PATIENT GOES TO MRI.
--- NOTE | 2021-09-21 15:47 | NUR ---
REPORT GIVEN TO AURELIA ZARCO AT THIS TIME
[2021-09-22 03:17] LABS: RED BLOOD COUNT 3.79 M/UL (4.00-5.10); WHITE BLOOD COUNT 6.4 K/UL (4.5-11.0)
[2021-09-22 03:35] LABS: BUN/CREATININE RATIO 26 (0-10)
[2021-09-23 03:04] LABS: HEMOGLOBIN 11.5 gm/dl (12.3-15.3); WHITE BLOOD COUNT 7.8 K/UL (4.5-11.0)
[2021-09-23 03:49] LABS: BUN/CREATININE RATIO 25 (0-10)
[2021-09-24 04:04] LABS: HEMOGLOBIN 12.4 gm/dl (12.3-15.3); RED BLOOD COUNT 4.33 M/UL (4.00-5.10); WHITE BLOOD COUNT 8.6 K/UL (4.5-11.0)
[2021-09-24 04:41] LABS: BUN/CREATININE RATIO 28 (0-10)
[2021-09-25 03:20] LABS: HEMOGLOBIN 12.5 gm/dl (12.3-15.3); RED BLOOD COUNT 4.36 M/UL (4.00-5.10); WHITE BLOOD COUNT 9.1 K/UL (4.5-11.0)
[2021-09-25 04:28] LABS: BUN/CREATININE RATIO 34 (0-10)
[2021-09-26 03:27] LABS: HEMOGLOBIN 13.1 gm/dl (12.3-15.3); RED BLOOD COUNT 4.63 M/UL (4.00-5.10)
[2021-09-26 03:56] LABS: BUN/CREATININE RATIO 33 (0-10)
[2021-09-26] MEDS ORDERED: KLOR-CON M2020 MEQ PO (10:27)
[2021-09-26] MEDS ORDERED: HEPARIN SO5000 UNIT2 SC (10:27)
[2021-09-26] MEDS ORDERED: MAG-OX 400 TAB400 MG PO (10:27)
[2021-09-26] MEDS ORDERED: HUMALOG 10100 UNITS/ SC (10:27)
[2021-09-26] MEDS ORDERED: OMNICEF 300 MG300 MG PO (10:27)
[2021-09-26] MEDS ORDERED: ACETAMINOPHEN325 MG PO (10:27)
--- NOTE | 2021-09-26 13:22 | NUR ---
Report called to admitting nurse at [facility] at 1315.
== END 2021-09-26 16:40 | DRG 871 ==
LOC: ER1 18:23 → PROG CARE 21:31 → CDU 21:31 → M/S 21:31 → PROG CARE 09-17 00:05 → M/S 09-20 17:11
PROVIDERS: Emergency Medicine; Internal Medicine; ADMIT Internal Medicine
DX: A41.51 Sepsis due to Escherichia coli [E. coli] (principal); G93.41 Metabolic encephalopathy; N17.9 Acute kidney failure, unspecified; L03.116 Cellulitis of left lower limb; Z68.41 Body mass index [BMI] 40.0-44.9, adult; N13.6 Pyonephrosis; R91.8 Other nonspecific abnormal finding of lung field; R65.20 Severe sepsis without septic shock; L89.892 Pressure ulcer of other site, stage 2; I10 Essential (primary) hypertension; E66.9 Obesity, unspecified; K57.90 Diverticulosis of intestine, part unspecified, without perforation or abscess without bleeding; E53.8 Deficiency of other specified B group vitamins; Z96.659 Presence of unspecified artificial knee joint; I27.20 Pulmonary hypertension, unspecified; Z20.822 Contact with and (suspected) exposure to COVID-19; E11.621 Type 2 diabetes mellitus with foot ulcer; L40.9 Psoriasis, unspecified; T50.995A Adverse effect of other drugs, medicaments and biological substances, initial encounter; L97.529 Non-pressure chronic ulcer of other part of left foot with unspecified severity; E78.5 Hyperlipidemia, unspecified; R32 Unspecified urinary incontinence; E87.6 Hypokalemia; E83.42 Hypomagnesemia; E11.40 Type 2 diabetes mellitus with diabetic neuropathy, unspecified; R09.02 Hypoxemia; L89.896 Pressure-induced deep tissue damage of other site; Z87.440 Personal history of urinary (tract) infections; Z79.84 Long term (current) use of oral hypoglycemic drugs; Z85.42 Personal history of malignant neoplasm of other parts of uterus; Z90.710 Acquired absence of both cervix and uterus; Z87.11 Personal history of peptic ulcer disease; Z98.890 Other specified postprocedural states; Z88.8 Allergy status to other drugs, medicaments and biological substances; Z83.3 Family history of diabetes mellitus; Z79.4 Long term (current) use of insulin; Z90.49 Acquired absence of other specified parts of digestive tract
CPT/HCPCS: 0240U; 36415; 36600; 51702; 70450; 70551; 71045; 71250; 73630; 73718; 80048; 80053; 81001; 82436; 82550; 82553; 82570; 82803; 82962; 83605; 83735; 83880; 84100; 84132; 84133; 84156; 84300; 84484; 85025; 85027; 85652; 86140; 87040; 87077; 87086; 87150; 87186; 93005; 94760; 96374; 97110; 97110-GP-CQ; 97161; 97166; 97530; 97530-GP-CQ; 99285; A6212; J0696; J1335; J1644; J2185; J3475; J3480; J7030; U0002

== ENCOUNTER → 2021-09-16 | Outpatient (CLI) | payer OTHER | LOC: WCC 08:22 | DX: E11.621 Type 2 diabetes mellitus with foot ulcer (principal); L97.525 Non-pressure chronic ulcer of other part of left foot with muscle involvement without evidence of necrosis; I10 Essential (primary) hypertension; E11.40 Type 2 diabetes mellitus with diabetic neuropathy, unspecified; R60.0 Localized edema; E66.01 Morbid (severe) obesity due to excess calories; D64.9 Anemia, unspecified; E11.36 Type 2 diabetes mellitus with diabetic cataract; H26.9 Unspecified cataract; Z88.8 Allergy status to other drugs, medicaments and biological substances; Z20.822 Contact with and (suspected) exposure to COVID-19 ==

== ENCOUNTER 2021-10-19 13:33 | Inpatient (IN) | payer OTHER ==
[~2021-10-19] VITALS: Ht 170.2 cm; Wt 105.5 kg
[~2021-10-19 13:33] MED LIST changes: +ACETAMINOPHEN325 MG PO; +HEPARIN SO5000 UNIT2 SC; +IBUPROFEN IB200 MG PO; +KLOR-CON M2020 MEQ PO; +LEVOFLOXACIN500 MG PO; +OMNICEF 300 MG300 MG PO; +RESTASIS1 EACH OU; +ZYRTEC10 MG PO
[2021-10-19 14:32] LABS: RED BLOOD COUNT 4.03 M/UL (4.00-5.10); WHITE BLOOD COUNT 9.5 K/UL (4.5-11.0)
[2021-10-19] MEDS ORDERED: MAGNESIUM OXID400 M1 PO (16:16)
[2021-10-19] MEDS ORDERED: POTASSIUM CHLO20 ME1 PO (16:16)
[2021-10-19] MEDS ORDERED: LEVEMIR FL100 UNIT/1 SQ (16:17)
[2021-10-19] MEDS ORDERED: HYDROCODON-ACE1 EAC6 PO (16:17)
[2021-10-19] MEDS ORDERED: VITAMIN C500 M4 PO (16:18)
[2021-10-20 02:51] LABS: RED BLOOD COUNT 3.34 M/UL (4.00-5.10); WHITE BLOOD COUNT 5.6 K/UL (4.5-11.0)
[2021-10-21] MEDS ORDERED: GABAPENTIN800 MG PO (11:46)
[2021-10-21] MEDS ORDERED: HYDROCODON-ACE1 EAC6 PO (11:47)
[2021-10-22 03:03] LABS: HEMOGLOBIN 10.4 gm/dl (12.3-15.3); RED BLOOD COUNT 3.57 M/UL (4.00-5.10)
[2021-10-22 03:37] LABS: BUN/CREATININE RATIO 15 (0-10)
[2021-10-23 04:32] LABS: BUN/CREATININE RATIO 21 (0-10)
[2021-10-23] MEDS ORDERED: ELIQUIS 5 MG TAB5 MG PO (10:00)
[2021-10-23] MEDS ORDERED: AMIODARONE HCL200 MG PO ×2 (10:00)
[2021-10-23] MEDS ORDERED: LOPRESSOR 50 MG50 MG PO (10:00)
[2021-10-23] MEDS ORDERED: CEFUROXIME500 MG PO (11:39)
== END 2021-10-23 13:55 | disposition home or self-care (01) | DRG 308 ==
LOC: ER1 13:33 → PROG CARE 15:50 → CDU 15:50 → PROG CARE 17:52
PROVIDERS: Family Medicine; Internal Medicine; Physician Assistant Medical; ADMIT Internal Medicine
PROC: B24BZZZ Ultrasonography of Heart with Aorta (ICD-10-PCS; principal; 2021-10-20)
DX: I48.91 Unspecified atrial fibrillation (principal); Z20.822 Contact with and (suspected) exposure to COVID-19; G92.8 Other toxic encephalopathy; N17.9 Acute kidney failure, unspecified; F11.20 Opioid dependence, uncomplicated; N30.00 Acute cystitis without hematuria; B96.20 Unspecified Escherichia coli [E. coli] as the cause of diseases classified elsewhere; I10 Essential (primary) hypertension; E11.65 Type 2 diabetes mellitus with hyperglycemia; E78.5 Hyperlipidemia, unspecified; E66.9 Obesity, unspecified; L89.322 Pressure ulcer of left buttock, stage 2; L89.152 Pressure ulcer of sacral region, stage 2; E83.42 Hypomagnesemia; I95.9 Hypotension, unspecified; I27.20 Pulmonary hypertension, unspecified; E86.0 Dehydration; K21.9 Gastro-esophageal reflux disease without esophagitis; L40.9 Psoriasis, unspecified; E11.621 Type 2 diabetes mellitus with foot ulcer; E11.40 Type 2 diabetes mellitus with diabetic neuropathy, unspecified; Z79.01 Long term (current) use of anticoagulants; Z79.4 Long term (current) use of insulin; Z87.440 Personal history of urinary (tract) infections; Z87.11 Personal history of peptic ulcer disease; Z88.8 Allergy status to other drugs, medicaments and biological substances; Z90.710 Acquired absence of both cervix and uterus; Z68.36 Body mass index [BMI] 36.0-36.9, adult
CPT/HCPCS: ECHO; 36415; 70450; 71045; 80048; 80053; 81001; 82550; 82553; 82962; 83036; 83605; 83735; 83880; 84100; 84439; 84443; 84484; 85025; 85027; 85610; 85730; 87040; 87077; 87086; 87186; 93005; 93306; 96374; 96375; 97110; 97116-GP-CQ; 97161; 97165; 97530; 97530-GP-CQ; 99285; A6212; J0696; J1160; J1335; J2543; J3475; P9047

== ENCOUNTER 2021-10-31 19:36 | Inpatient (IN) | payer OTHER ==
[~2021-10-31] VITALS: Ht 170.2 cm; Wt 116.3 kg
[~2021-10-31 19:36] MED LIST changes: +AMIODARONE HCL200 MG PO; +CEFUROXIME500 MG PO; +ELIQUIS 5 MG TAB5 MG PO; +GABAPENTIN800 MG PO; +LEVEMIR FL100 UNIT/1 SQ; +LOPRESSOR 50 MG50 MG PO; +MAGNESIUM OXID400 M1 PO; +POTASSIUM CHLO20 ME1 PO; +VITAMIN C500 M4 PO
[2021-10-31 20:32] LABS: HEMOGLOBIN 10.5 gm/dl (12.3-15.3); RED BLOOD COUNT 3.63 M/UL (4.00-5.10); WHITE BLOOD COUNT 7.6 K/UL (4.5-11.0)
[2021-11-01 05:41] LABS: HEMOGLOBIN 9.8 gm/dl (12.3-15.3); RED BLOOD COUNT 3.36 M/UL (4.00-5.10); WHITE BLOOD COUNT 7.8 K/UL (4.5-11.0)
[2021-11-01] MEDS ORDERED: AMIODARONE HCL200 MG PO (10:10)
[2021-11-02 02:11] LABS: HEMOGLOBIN 9.8 gm/dl (12.3-15.3); RED BLOOD COUNT 3.39 M/UL (4.00-5.10)
[2021-11-02 02:39] LABS: WHITE BLOOD COUNT 5.4 K/UL (4.5-11.0)
[2021-11-02 16:52] LABS: BUN/CREATININE RATIO 28 (0-10)
[2021-11-03 03:52] LABS: HEMOGLOBIN 8.9 gm/dl (12.3-15.3); WHITE BLOOD COUNT 4.7 K/UL (4.5-11.0)
[2021-11-03 04:14] LABS: RED BLOOD COUNT 3.05 M/UL (4.00-5.10)
[2021-11-03 04:23] LABS: BUN/CREATININE RATIO 18 (0-10)
[2021-11-04 02:30] LABS: HEMOGLOBIN 9.1 gm/dl (12.3-15.3); RED BLOOD COUNT 3.09 M/UL (4.00-5.10); WHITE BLOOD COUNT 4.6 K/UL (4.5-11.0)
[2021-11-04 02:43] LABS: BUN/CREATININE RATIO 16 (0-10)
[2021-11-04] MEDS ORDERED: JARDIANCE10 MG PO (09:54)
[2021-11-04] MEDS ORDERED: GLUCOPHAGE 850850 MG PO (09:54)
[2021-11-04] MEDS ORDERED: THERAGRAN M TAB1 EA PO (09:54)
[2021-11-04] MEDS ORDERED: LISINOPRIL10 MG PO (09:54)
[2021-11-04] MEDS ORDERED: LOPRESSOR 25 MG25 MG PO (09:54)
== END 2021-11-04 11:15 | disposition home or self-care (01) | DRG 682 ==
LOC: ER1 19:36 → CDU 22:18 → PROG CARE 22:18
PROVIDERS: Internal Medicine; Internal Medicine Infectious Disease; Preventive Medicine Occupational Medicine; ADMIT Internal Medicine
DX: N17.9 Acute kidney failure, unspecified (principal); G93.41 Metabolic encephalopathy; J96.01 Acute respiratory failure with hypoxia; E87.1 Hypo-osmolality and hyponatremia; L03.116 Cellulitis of left lower limb; E11.649 Type 2 diabetes mellitus with hypoglycemia without coma; G89.29 Other chronic pain; E87.5 Hyperkalemia; E83.42 Hypomagnesemia; L97.529 Non-pressure chronic ulcer of other part of left foot with unspecified severity; E53.8 Deficiency of other specified B group vitamins; R00.1 Bradycardia, unspecified; D50.9 Iron deficiency anemia, unspecified; I48.0 Paroxysmal atrial fibrillation; I27.20 Pulmonary hypertension, unspecified; E11.43 Type 2 diabetes mellitus with diabetic autonomic (poly)neuropathy; L89.152 Pressure ulcer of sacral region, stage 2; E11.51 Type 2 diabetes mellitus with diabetic peripheral angiopathy without gangrene; E78.5 Hyperlipidemia, unspecified; I73.9 Peripheral vascular disease, unspecified; Z96.659 Presence of unspecified artificial knee joint; Z87.442 Personal history of urinary calculi; Z79.4 Long term (current) use of insulin; Z87.440 Personal history of urinary (tract) infections; Z90.710 Acquired absence of both cervix and uterus; Z90.49 Acquired absence of other specified parts of digestive tract; Z88.8 Allergy status to other drugs, medicaments and biological substances; Z83.3 Family history of diabetes mellitus
CPT/HCPCS: 36415; 36600; 71045; 80048; 80053; 80158; 81001; 82009; 82550; 82553; 82607; 82728; 82746; 82803; 82962; 83036; 83540; 83550; 83690; 83735; 83880; 84132; 84439; 84443; 84484; 85025; 85027; 85610; 85652; 85730; 86140; 87086; 93005; 94640; 94664; 94760; 96365; 96374; 96375; 96376; 97116; 97161; 99285; G0378; J0610; J0692; J0696; J1610; J1756; J3420; J3475; J7030